=== PATIENT | female | born 1955 | race Caucasian/White ===

== ENCOUNTER 2018-03-31 07:24 | Observation (INO) | payer OTHER ==
[2018-03-25 13:33] LABS: BASOPHILS % (AUTO) 0.6 % (0.0-2.0); EOSINOPHILS % (AUTO) 3.1 % (1.0-6.0); HEMOGLOBIN 12.7 g/dL (12.0-16.0); LYMPHOCYTES # (AUTO) 1.6 K/uL (1.0-4.8); LYMPHOCYTES % (AUTO) 29.7 % (22.0-44.0); MEAN CORPUSCULAR HEMOGLOBIN 26.9 pg (26.0-34.0); MEAN CORPUSCULAR HGB CONC 33.4 G/dL (31.0-37.0); MEAN CORPUSCULAR VOLUME 81 fL (80-100); MONOCYTES # (AUTO) 0.3 K/uL (0.1-1.0); MONOCYTES % (AUTO) 5.9 % (2.0-9.0); NEUTROPHILS # (AUTO) 3.2 K/uL (1.8-7.7); NEUTROPHILS % (AUTO) 60.7 % (40.0-70.0); PLATELET COUNT (AUTO) 270 K/uL (150-450); RED BLOOD CELL COUNT(AUTO) 4.72 MIL/uL (4.00-5.20); RED CELL DISTRIBUTION WIDTH 13.8 % (11.5-14.5)
[2018-03-25 13:41] LABS: ANION GAP 7 mmol/L (8-16); CALCIUM, TOTAL 8.9 mg/dL (8.8-10.5); CARBON DIOXIDE 28 mmol/L (22-29); CHLORIDE 106 mmol/L (98-107); CREATININE 0.62 mg/dL (0.60-1.30); GLOMERULAR FILTR. RATE CALC > 60 mL/min (>60); GLUCOSE,RANDOM 118 mg/dL (70-110); SODIUM SERUM 141 mmol/L (136-145); UREA NITROGEN, BLOOD 14 mg/dL (7-18)
[2018-03-25 13:45] LABS: PROTHROMBIN TIME 10.1 SEC (9.4-11.6)
[2018-03-25 13:47] LABS: ALANINE AMINOTRANSFERASE 32 U/L (12-78); ALBUMIN 3.4 g/dL (3.4-5.0); ALKALINE PHOSPHATASE 81 U/L (46-116); ASPARTATE AMINOTRANSFERASE 25 U/L (15-37); BILIRUBIN,TOTAL 0.3 mg/dL (0.1-1.0); TOTAL PROTEIN, SERUM 6.9 g/dL (6.4-8.2)
[~2018-03-31] VITALS: Ht 157.5 cm; Wt 103.2 kg
[~2018-03-31 07:24] MED LIST: CLINDAMYCIN 600 MG/D5% WATER 50 ML IV ONE; RINGERS SOLUTION,LACTATED 1,000 ML IV ONE
[2018-03-31] MEDS ORDERED: BUPIVACAINE LIPOSOME/PF 1.3%-13.3MG/ML SUSPENSION 10 ML VIAL INJ ONE (07:45)
[2018-03-31] MEDS ORDERED: BUPIVACAINE HCL/PF 0.5% 30 ML VIAL ONE (07:56)
[2018-03-31] MEDS ORDERED: BUPIVACAINE LIPOSOME/PF 1.3%-13.3MG/ML SUSPENSION 20 ML VIAL INJ ONE (08:15)
[2018-03-31] MEDS ORDERED: VANCOMYCIN HCL 1 GM/VIAL ONE (08:42)
[2018-03-31] MEDS ORDERED: CYCLOBENZAPRINE HCL 10 MG TABLET PO PRN (09:30)
[2018-03-31] MEDS ORDERED: MEPERIDINE-PF 25 MG/ML VIAL IVP PRN (09:30)
[2018-03-31] MEDS ORDERED: ZOLPIDEM TARTRATE 5 MG TABLET PO PRN (09:30)
[2018-03-31] MEDS ORDERED: ONDANSETRON HCL 4 MG/2 ML VIAL IVP PRN (09:30)
[2018-03-31] MEDS ORDERED: HYDROmorphone 2 MG/ML SYRINGE IVP PRN ×2 (09:30)
[2018-03-31] MEDS ORDERED: FentaNYL CITRATE-PF 100 MCG/2 ML VIAL IVP PRN (09:30)
[2018-03-31] MEDS ORDERED: OxyCODONE HCL/ACETAMINOPHEN 10-325 MG TABLET PO PRN (09:30)
[2018-03-31] MEDS ORDERED: BENZOCAINE/MENTHOL LOZENGE PO PRN (10:00)
[2018-03-31] MEDS ORDERED: ZOLPIDEM TARTRATE 10 MG TABLET PO PRN (10:00)
[2018-03-31] MEDS ORDERED: DiphenhydrAMINE HCL 50 MG/ML VIAL IVP PRN (10:00)
[2018-03-31 11:28] VITALS: BP_SYST 99; BP_DIAS 4; BP_DIAS 55
[2018-03-31 15:44] VITALS: BP 126/82
[2018-03-31] MEDS: ACETAMINOPHEN 1000 MG/ISO-OSM 100 ML IV SCH ×2 (15:51→20:05)
[2018-03-31 19:54] VITALS: BP 126/79
[2018-03-31] MEDS ORDERED: OXYGEN THERAPY IH SCH (20:00)
[2018-03-31] MEDS: DOCUSATE SODIUM 100 MG CAPSULE PO SCH (20:04)
[2018-03-31 23:32] VITALS: BP 121/82
[2018-04-01 04:00] VITALS: BP 126/72
[2018-04-01] MEDS ORDERED: ONDANSETRON HCL 4 MG/2 ML VIAL IVP ONE (05:06)
[2018-04-01] MEDS ORDERED: ROCURONIUM BROMIDE 10 MG/ML 5 ML VIAL IVP ONE (05:06)
[2018-04-01] MEDS ORDERED: KETOROLAC TROMETHAMINE 60 MG/2 ML VIAL IM ONE (05:06)
[2018-04-01] MEDS ORDERED: MIDAZOLAM HCL 2 MG/2 ML VIAL IVP ONE (05:06)
[2018-04-01] MEDS ORDERED: PROPOFOL 1% 20 ML VIAL IVP ONE (05:06)
[2018-04-01] MEDS ORDERED: FentaNYL CITRATE-PF 250 MCG/5 ML VIAL IVP ONE (05:06)
[2018-04-01] MEDS ORDERED: SUCCINYLCHOLINE CHLORIDE 20 MG/ML 10 ML VIAL IVP ONE (05:06)
[2018-04-01] MEDS ORDERED: LIDOCAINE/PF 2% 5 ML VIAL IM ONE (05:06)
[2018-04-01] MEDS ORDERED: DEXAMETHASONE SOD PHOS 4 MG/ML VIAL IVP ONE (05:06)
[2018-04-01 07:25] VITALS: BP 134/77
[2018-04-01] MEDS: DOCUSATE SODIUM 100 MG CAPSULE PO SCH (08:43)
[2018-04-01 11:17] VITALS: BP 123/77
== END 2018-04-01 12:40 | disposition home or self-care (01) ==
LOC: 5N 07:24 → INTOOBSV 07:24 → 4E 08:42
PROVIDERS: ADMIT Orthopaedic Surgery Orthopaedic Surgery of the Spine; ATTEND Orthopaedic Surgery Orthopaedic Surgery of the Spine
DX: M48.07 Spinal stenosis, lumbosacral region (principal); M54.17 Radiculopathy, lumbosacral region
CPT/HCPCS: 36415; 63047; 80053; 85025; 85610; 85730; 87081; 88300; 93005; 96374; 96376; 97116; 97161; 97165; 97535; C9290; G0238; G0378 ×2; J0131; J0330; J1100; J1885; J2250; J2405; J2704; J3010; J3370; J3490 ×4; J7120